=== PATIENT | female | born 1950 | race Caucasian/White ===

== ENCOUNTER 2025-08-29 13:02 | Emergency (ER) | payer MEDICARE, OTHER ==
[~2025-08-29] VITALS: Ht 162.6 cm; Wt 77.0 kg
[2025-08-29 13:05] VITALS: O2SAT 98
[2025-08-29] MEDS: KETOROLAC 30MG/ML VIAL IM ONE (16:30)
[2025-08-29] MEDS: DEXAMETHASONE 10 MG/ML VIAL IM ONE (16:30)
[2025-08-29] MEDS: HYDROCODONE/ACETAMINOPHEN 5/325MG TABLET PO ONE (16:30)
[2025-08-29] MEDS ORDERED: CYCL10TA21 MT (17:41)
[2025-08-29] MEDS ORDERED: LIDO-53 TP (17:41)
[2025-08-29] MEDS ORDERED: METH4TAB95 MT (17:41)
[2025-08-29] MEDS ORDERED: ACET-2708 MT (20:56)
[2025-08-29 21:35] VITALS: BP 146/84; PULSE 63; RESP 18; TEMP 36.8; O2SAT 100
== END 2025-08-29 21:40 | disposition home or self-care (01) ==
LOC: ER 13:02
DX: M54.9 Dorsalgia, unspecified (principal)
CPT/HCPCS: 99285; 72128; 72170; 72220; 72131; 71250; 74176; 96372; J1885; J1100